=== PATIENT | female | born 1975 | race Caucasian/White ===

== ENCOUNTER 2021-12-30 07:54 | Day surgery (SDC) | payer BC ==
[~2021-12-30] VITALS: Ht 177.8 cm; Wt 102.4 kg
[2021-12-30 08:12] VITALS: BP 123/84; PULSE 68; TEMP 97.5
[2021-12-30 10:00] VITALS: BP 106/75; PULSE 66; TEMP 96.9
--- NOTE | 2021-12-30 10:00 | NUR ---
The patient arrived from the endo suite after recieving moderate sedation. The patient is drowsy, but successfully ambulated from the cart to the bed without difficulty. Vitals obtained and are WNL. The patient is tolerating ice water and a warm muffin well. Denies nausea. No vomiting. Her daughter is present. Call vitale is within reach.
--- NOTE | 2021-12-30 10:11 | NUR ---
was in the room to speak with the patient and her daughter.
[2021-12-30 10:15] VITALS: BP 114/73; PULSE 57
--- NOTE | 2021-12-30 10:15 | NUR ---
The patient is eating her muffin. Vitals obtained. Call vitale remains within reach.
[2021-12-30 10:30] VITALS: BP 106/64; PULSE 57
--- NOTE | 2021-12-30 10:30 | NUR ---
Vitals obtained. IV discontinued. Catheter tip intact. Pressure dressing applied. No redness or swelling noted. DC instructions and edcuational material was reviewed with the patient and her daughter. The patient verbalized understanding and signed the related paperwork. The patient denied needing assistance changing into her personal clothes.
== END 2021-12-30 10:40 | disposition home or self-care (01) ==
LOC: SDCO 07:54
DX: Z12.11 Encounter for screening for malignant neoplasm of colon (principal); K22.70 Barrett's esophagus without dysplasia; K21.00 Gastro-esophageal reflux disease with esophagitis, without bleeding; K64.0 First degree hemorrhoids; Z80.0 Family history of malignant neoplasm of digestive organs; Z87.891 Personal history of nicotine dependence
CPT/HCPCS: J2704; J7030